=== PATIENT | male | born 1970 | race Caucasian/White ===

== ENCOUNTER 2016-07-04 10:03 | Inpatient (IN) | payer MEDICAID ==
[2016-07-04] MEDS ORDERED: SODIUM CHLORIDE 0.9% 1,000 ML IV ONE ×2 (10:36→12:36)
[2016-07-04] MEDS ORDERED: cloNIDine HCL 0.1 MG TAB PO STA (10:37)
--- NOTE | 2016-07-04 10:50 | ED ---
General Adult HPI - General Chief complaint: Psychiatric Symptoms Stated complaint: Mental Health Time Seen by Provider: 07/04/16 10:20 Source: patient Mode of arrival: ambulatory Limitations: no limitations - History of Present Illness Initial comments: 45-year-old male patient presents to emergency department today for complaints of anxiety and depression. Patient states that he's been having increased symptoms since the end of February when he lost his job. He states that he has been basically a hermit, afraid to leave the house, and has also had increased alcohol intake. Patient states that he has been on Effexor, clonazepam, and risperidone for the last 10 years, but abruptly stopped taking at the end of May. Patient did attempt to get into treatment for alcohol dependence at the beginning of June, but when he was released started drinking even more. Patient states that he drinks beer continuously throughout the day. Patient states he is having thoughts of harming himself, but denies any specific plan or attempts. Patient states he has also been having hallucinations, such as seeing bugs crawling on the floor with are not really there. Patient reports increased anxiety, to the point where it is becoming intolerable. Patient's friend is present and states that he has been extremely paranoid, is constantly looking at the windows, and is very fearful whenever she tries to leave his house. Patient denies any back pain, headache, dizziness, weakness, chest pain , shortness of breath, dysuria, urinary urgency or frequency. Patient states he is having some intermittent abdominal pain, nausea, and diarrhea. Patient was seen at [facility] on Wednesday for symptoms of anxiety and depression, and was noted to have elevated liver enzymes per patient. - Related Data Allergies Allergy/AdvReac Type Severity Reaction Status Date / Time No Known Allergies Allergy Verified 07/04/16 10:19 Review of Systems ROS Statement: Those systems with pertinent positive or pertinent negative responses have been documented in the HPI. ROS Other: All systems not noted in ROS Statement are negative. Past Medical History Past Medical History: No Reported History History of Any Multi-Drug Resistant Organisms: None Reported Past Surgical History: Hernia Repair Past Psychological History: Anxiety, Depression Smoking Status: Current every day smoker Past Alcohol Use History: Daily, Heavy Past Drug Use History: None Reported General Exam Limitations: no limitations General appearance: alert, in no apparent distress, anxious, other (Patient is thin-appearing) Head exam: Present: atraumatic, normocephalic, normal inspection Eye exam: Present: normal appearance, PERRL, EOMI. Absent: scleral icterus, conjunctival injection, periorbital swelling ENT exam: Present: normal exam, normal oropharynx, mucous membranes moist Neck exam: Present: normal inspection. Absent: tenderness, meningismus, lymphadenopathy Respiratory exam: Present: normal lung sounds bilaterally. Absent: respiratory distress, wheezes, rales, rhonchi, stridor Cardiovascular Exam: Present: regular rate, normal rhythm, normal heart sounds. Absent: systolic murmur, diastolic murmur, rubs, gallop, clicks GI/Abdominal exam: Present: soft, normal bowel sounds. Absent: distended, tenderness, guarding, rebound, rigid Extremities exam: Present: normal inspection, full ROM, normal capillary refill. Absent: tenderness, pedal edema, joint swelling, calf tenderness Back exam: Present: normal inspection Neurological exam: Present: alert, oriented X3, CN II-XII intact Psychiatric exam: Present: anxious Skin exam: Present: warm, dry, intact, normal color. Absent: rash Course Vital Signs 07/04/16 07/04/16 07/04/16 10:15 11:30 12:33 Temperature 97.5 F L 98.1 F Pulse Rate 121 H 94 101 H Respiratory 20 18 18 Rate Blood Pressure 201/109 192/91 178/90 O2 Sat by Pulse 98 100 98 Oximetry - Reevaluation(s) Reevaluation #1: 07/04/16 11:32 Repeated vital signs blood pressure is currently 192/91, oxygen 100%, heart rate 84, respirations 18. Patient denies any pain to states that he is hungry. We will call psych for mental health evaluation and let patient eat at this time. We'll continue to monitor blood pressure. EKG Findings - EKG Comments: EKG Findings:: EKG obtained at 1108 reveals normal sinus rhythm with nonspecific ST and T-wave abnormality, prolonged QT, ventricular rate 92, KY interval 120, QRS duration 98, QT 376, QTc 464. No ST elevation or depression noted. Medical Decision Making - Lab Data Result diagrams: 07/04/16 10:45 07/04/16 10:45 Lab Results 07/04/16 07/04/16 07/04/16 Range/Units 10:45 10:45 10:45 WBC 8.1 (3.8-10.6) k/uL RBC 4.39 (4.30-5.90) m/uL Hgb 14.4 (13.0-17.5) gm/dL Hct 42.7 (39.0-53.0) % MCV 97.4 (80.0-100.0) fL MCH 32.8 (25.0-35.0) pg MCHC 33.6 (31.0-37.0) g/dL RDW 12.7 (11.5-15.5) % Plt Count 170 (150-450) k/uL Neutrophils % 82 % Lymphocytes % 5 % Monocytes % 9 % Eosinophils % 0 % Basophils % 1 % Neutrophils # 6.6 (1.3-7.7) k/uL Lymphocytes # 0.4 L (1.0-4.8) k/uL Monocytes # 0.8 (0-1.0) k/uL Eosinophils # 0.0 (0-0.7) k/uL Basophils # 0.0 (0-0.2) k/uL Sodium 137 (137-145) mmol/L Potassium 3.2 L (3.5-5.1) mmol/L Chloride 99 (98-107) mmol/L Carbon Dioxide 25 (22-30) mmol/L Anion Gap 13 mmol/L BUN 9 (9-20) mg/dL Creatinine 0.67 (0.66-1.25) mg/dL Est GFR (MDRD) Af Amer >60 (>60 ml/min/1.73 sqM) Est GFR (MDRD) Non-Af >60 (>60 ml/min/1.73 sqM) Glucose 182 H (74-99) mg/dL Calcium 8.9 (8.4-10.2) mg/dL Magnesium 1.9 (1.6-2.3) mg/dL Total Bilirubin 0.9 (0.2-1.3) mg/dL AST 562 H (17-59) U/L ALT 252 H (21-72) U/L Alkaline Phosphatase 101 (38-126) U/L Total Protein 6.4 (6.3-8.2) g/dL Albumin 3.9 (3.5-5.0) g/dL Amylase 68 (30-110) U/L Lipase 290 (23-300) U/L Urine Color Yellow Urine Appearance Clear (Clear) Urine pH 6.5 (5.0-8.0) Ur Specific [place] 1.016 (1.001-1.035) Urine Protein 1+ H (Negative) Urine Glucose (UA) Negative (Negative) Urine Ketones 1+ H (Negative) Urine Blood Small H (Negative) Urine Nitrite Negative (Negative) Urine Bilirubin Negative (Negative) Urine Urobilinogen 2.0 (<2.0) mg/dL Ur Leukocyte Esterase Negative (Negative) Urine RBC 1 (0-5) /hpf Urine WBC 1 (0-5) /hpf Urine Mucus Few H (None) /hpf Urine Opiates Screen Not Detected (NotDetected) Ur Oxycodone Screen Not Detected (NotDetected) Urine Methadone Screen Not Detected (NotDetected) Ur Propoxyphene Screen Not Detected (NotDetected) Ur Barbiturates Screen Not Detected (NotDetected) U Tricyclic Antidepress Not Detected (NotDetected) Ur Phencyclidine Scrn Not Detected (NotDetected) Ur Amphetamines Screen Not Detected (NotDetected) U Methamphetamines Scrn Not Detected (NotDetected) U Benzodiazepines Scrn Detected H (NotDetected) Urine Cocaine Screen Not Detected (NotDetected) U Marijuana (THC) Screen Not Detected (NotDetected) Disposition Clinical Impression: Depression, Alcohol abuse, Acute anxiety Disposition: ADMITTED IP TO THIS [facility] Condition: Stable
[2016-07-04 10:58] LABS: Basophils % (A) 1 %; CH 33.3; CHCM 34.3; Eosinophils % (A) 0 %; HCT 42.7 % (39.0-53.0); HDW 2.18; HGB 14.4 gm/dL (13.0-17.5); Luc # (Auto) 0.19; Luc % (Auto) 2; Lymphocytes # (A) 0.4 k/uL (1.0-4.8); Lymphocytes % (A) 5 %; MCH 32.8 pg (25.0-35.0); MCHC 33.6 g/dL (31.0-37.0); MCV 97.4 fL (80.0-100.0); Mean Platelet Volume 8.5; Monocytes # (A) 0.8 k/uL (0-1.0); Monocytes % (A) 9 %; Neutrophils # (A) 6.6 k/uL (1.3-7.7); Neutrophils % (A) 82 %; RBC 4.39 m/uL (4.30-5.90); RDW 12.7 % (11.5-15.5); WBC 8.1 k/uL (3.8-10.6); WBC (Perox) 8.15
[2016-07-04 11:15] LABS: Appearance,Urine Clear (Clear); Bilirubin,Urine Negative (Negative); Glucose,Urine (UA) Negative (Negative); Ketones,Urine 1+ (Negative); Leukocyte Esterase,Urine Negative (Negative); Mucus,Urine Few /hpf; Nitrite,Urine Negative (Negative); PH, Urine 6.5 (5.0-8.0); Particle Count 4620; Protein,Urine 1+ (Negative); RBC,Urine 1 /hpf (0-5); Specific Gravity,Urine 1.016 (1.001-1.035); UA Billing (MACRO vs. MICRO) MICRO; WBC,Urine 1 /hpf (0-5)
[2016-07-04 11:17] LABS: ALT 252 U/L (21-72); AST 562 U/L (17-59); Alkaline Phosphatase 101 U/L (38-126); Amylase 68 U/L (30-110); Anion Gap 13 mmol/L; Blood Urea Nitrogen 9 mg/dL (9-20); Calcium 8.9 mg/dL (8.4-10.2); Carbon Dioxide 25 mmol/L (22-30); Chloride 99 mmol/L (98-107); Glucose 182 mg/dL (74-99); Magnesium 1.9 mg/dL (1.6-2.3); Non-African American GFR(MDRD) >60 (>60 ml/min/1.73 sqM); Potassium 3.2 mmol/L (3.5-5.1); Sodium 137 mmol/L (137-145); Total Bilirubin 0.9 mg/dL (0.2-1.3); Total Protein 6.4 g/dL (6.3-8.2)
[2016-07-04] MEDS ORDERED: POTASSIUM CHLORIDE ER 20 MEQ TAB.ER PO STA (11:29)
[2016-07-04] MEDS ORDERED: LORazepam 2 MG/ML SYRINGE IV STA (12:36)
[2016-07-04] MEDS ORDERED: MAGNESIUM HYDROXIDE 2,400 MG/10 ML CUP PO PRN (13:12)
[2016-07-04] MEDS ORDERED: MAG HYDROX/AL HYDROX/SIMETH 30 ML CUP PO PRN (13:12)
[2016-07-04] MEDS ORDERED: ZIPRASIDONE 20 MG VIAL IM PRN (13:12)
[2016-07-04] MEDS ORDERED: ACETAMINOPHEN TAB 325 MG TAB PO PRN (13:12)
[2016-07-04 14:48] VITALS: BMI 19.3
[2016-07-04] MEDS: NICOTINE 21MG/24HR PATCH TRANSDERM SCH (15:52)
[2016-07-04] MEDS: LORazepam 1 MG TAB PO PRN (17:32)
[2016-07-05] MEDS: LORazepam 1 MG TAB PO PRN ×4 (06:34→20:51)
[2016-07-05] MEDS ORDERED: NICOTINE 14MG/24HR PATCH TRANSDERM SCH (09:00)
[2016-07-05] MEDS: VENLAFAXINE HCL ER 150 MG CAP PO SCH (09:44)
[2016-07-05] MEDS: NICOTINE 21MG/24HR PATCH TRANSDERM SCH (09:44)
[2016-07-05 10:03] LABS: Basophils % (A) 0 %; CH 32.9; CHCM 32.7; Eosinophils # (A) 0.1 k/uL (0-0.7); Eosinophils % (A) 1 %; HCT 43.3 % (39.0-53.0); HDW 2.17; HGB 14.2 gm/dL (13.0-17.5); Luc # (Auto) 0.11; Luc % (Auto) 2; Lymphocytes # (A) 0.8 k/uL (1.0-4.8); Lymphocytes % (A) 12 %; MCH 33.1 pg (25.0-35.0); MCHC 32.8 g/dL (31.0-37.0); MCV 100.8 fL (80.0-100.0); Mean Platelet Volume 8.5; Monocytes # (A) 0.5 k/uL (0-1.0); Monocytes % (A) 8 %; Neutrophils # (A) 5.1 k/uL (1.3-7.7); Neutrophils % (A) 78 %; RBC 4.29 m/uL (4.30-5.90); RDW 12.5 % (11.5-15.5); WBC 6.5 k/uL (3.8-10.6); WBC (Perox) 6.86
[2016-07-05 11:03] LABS: ALT 217 U/L (21-72); AST 337 U/L (17-59); Alkaline Phosphatase 91 U/L (38-126); Anion Gap 11 mmol/L; Blood Urea Nitrogen 8 mg/dL (9-20); Calcium 9.2 mg/dL (8.4-10.2); Carbon Dioxide 29 mmol/L (22-30); Chloride 103 mmol/L (98-107); Glucose 139 mg/dL (74-99); Non-African American GFR(MDRD) >60 (>60 ml/min/1.73 sqM); Potassium 3.3 mmol/L (3.5-5.1); Sodium 143 mmol/L (137-145); Total Bilirubin 0.8 mg/dL (0.2-1.3); Total Protein 6.7 g/dL (6.3-8.2)
[2016-07-05 11:47] LABS: Hepatitis C Virus IgG Index 0.01
[2016-07-05 11:56] LABS: Hepatitis C Virus IgG Ab Negative (Negative)
--- NOTE | 2016-07-05 12:33 | HP ---
DATE OF ADMISSION: 07/04/2016 IDENTIFYING DATA/HISTORY OF PRESENT ILLNESS: Patient is a 45-year-old white male living on his own who presented to the emergency department with complaints of anxiety and depression. Patient stated that he has history of depression and anxiety since 2003 and it was under control with psychotropic medication; However, for the last 2 to 3 months, patient has been noncompliant with the psychotropic medication and he has been drinking on a daily basis up to 12 cans a beer a day. Patient stated that for the last 2 to 3 months he has been isolating himself, afraid to leave the house, not taking care of his hygiene, sleeping most of the daytime and not able to sleep at night. Patient described increased anxiety, characterized by restless feeling, irritability and feeling on edge. Patient reported that he was in stable job working until January 2016. At that time, he did get into conflict with others two coworkers and he decided to quit his job. He did report that he has been struggling with a lot of financial issues as he does not have any income. Patient is estranged from every family member even from his children. Patient stated he has only one support system, it is his friend Nichole. He denied having any suicidal ideation, but he endorses feeling hopeless, helpless, agitated. No interest. Change in sleep pattern and change in his appetite, tiredness and fatigue and no interest to get out of the house. He denied any auditory or visual hallucination. He denied any idea of reference or thought process or thought broadcasting. PAST PSYCHIATRIC HISTORY: There is no previous suicidal attempt. There is previous outpatient treatment at age 29, he was in treatment for alcohol abuse and depression and anxiety for 4 years. At that time he was going through his first divorce. In 2003, patient was admitted to the day hospital program in [facility] in [facility] and he was started at that time on Effexor 150 mg daily, Klonopin 0.5 twice a day, Risperdal 1 mg at bedtime. After the day program, patient was in outpatient Behavior Medicine at [facility] in [place] until 2005 for alcohol use and depression. Patient stated that since 2005, he has been getting the same psychotropic medication prescribed by his primary care physician. However, he has been noncompliant with the medication since first week of May. Patient stated that he lost his medical insurance and he is trying to apply for Medicaid. Family history of psychiatric illness: Patient stated that his mother had depression but never had been treated. Multiple family members from his mother's side have depression. Family history of chemical dependence: His father was alcoholic. Substance abuse history: He started drinking in 2009 according to him, when I "this [place] lady" and his drinking has been out of control since he quit his job January 2016 and as I mentioned before, he has been drinking on a daily basis up to 12 cans of beers a day. He denied any withdrawal seizure or DT. Patient stated that he was in 5 days alcohol detox program first week of June at [place]. However, after the 5 days Detox, he did relapse the day of the discharge There is no known allergy. There is no acute medical problems. Vital signs at the time of his arrival to the emergency room: Temperature 98.1, pulse 101, respiration 18, blood pressure 178/90. Urine drug screen is positive for benzodiazepine; however, patient did receive Ativan when he came to the emergency room. EKG done on July 04 I do not have that report that result yet. LABORATORY DATA: White blood cells within normal, red blood cells within normal limits. Sodium 137, potassium slightly low at 3.2, blood glucose was 182, hepatic enzyme high, AST 562, ALT 252, his urinalysis there is 1+ cocaine, small amount of blood and some urine mucous but it is negative for leukocyte esterase. SOCIAL HISTORY: Patient is the youngest of 2. He has one older brother. He was raised by both parents. He graduated from high school. He was in special education class . He was raised Pentecostalism. After high school he started working in the [employer] and he has been working in the same company until past January 2016. He was twice. The first marriage for 13 years and he had 2 children. Patient does not have contact with them. His second marriage it was in 2009. He stated that he met a [place] lady; however, they were together for only a couple of years and since then they have been and she is currently in [place] and patient does not know where she is. Patient is currently unemployed. Does not have any income and he has been living on his own. Legal problems: Currently he denied any current legal program. MENTAL STATUS EXAMINATION: Patient presented as male who looks older than stated age. He is dressed in his own clothing, poor hygiene. He has good eye contact. His speech is nonpressured and spontaneous. Thought process is linear. There is no evidence of tangential thinking. He was alert, oriented to person, place and time. His affect is conflicted stated mood "I am anxious and depressed." He denied any suicidal or homicide ideation, but he expressed depressive symptoms including feeling helpless, worthless and overwhelmed. He denied any hallucination, but he did express some paranoia and suspicious feeling toward people in general. His thinking appears complete. He does not appear to be responding to any internal stimuli. His insight regarding his alcohol use is questionable. Intellectual function: Average. Weakness: Alcohol use disorder. No job, limited social support system. STRENGTHS: Patient is able to ask for help. DISCHARGE DIAGNOSES: 1. Major depression disorder, recurrent, moderate rule out with psychotic feature. 2. Alcohol use disorder, severe. 3. Anxiety disorder. RECOMMENDATION: We will continue inpatient psychiatric hospitalization for treatment of depressive symptoms and his paranoia. Patient will be on [facility] protocol for alcohol detox. I will restart him back on his psychotropic medication Effexor and low dose of Risperdal, however, I will not give him any benzodiazepine based on his extensive history of alcohol use. Patient will participate in therapeutic group and activities. slab worker to meet with his friend Nichole for collateral information. Length of stay four to 5 days with most probably he will be discharged to substance abuse rehab.
[2016-07-05] MEDS ORDERED: LOPERAMIDE 2 MG CAP PO PRN (13:11)
[2016-07-05] MEDS: ONDANSETRON 4 MG TAB PO PRN (13:46)
[2016-07-05] MEDS: FOLIC ACID 1 MG TAB PO SCH (14:21)
[2016-07-05] MEDS: cloNIDine HCL 0.1 MG TAB PO PRN ×2 (14:21→20:49)
[2016-07-05] MEDS: THIAMINE 100 MG TAB PO SCH (14:21)
[2016-07-05] MEDS: MULTIVITAMINS, THERA 1 EACH TAB PO SCH (14:22)
--- NOTE | 2016-07-05 14:51 | P.HPMEDMHU ---
History of Present Illness H&P Date: 07/05/16 Chief Complaint: Major depressive disorder, alcohol abuse. 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 Apparently since he had lost his job he has been struggling financially and he is not able to take his depression medications. Review of Systems Constitutional: Denies chills, Denies chronic headaches, Denies lethargy, Denies malaise, Denies weight gain, Denies weight loss Eyes: denies blurred vision, denies bulging eye, denies decreased vision Ears: deny: decreased hearing Ears, nose, mouth and throat: Denies dysphagia, Denies neck lump, Denies swelling in throat, Denies sore throat, Denies vertigo Cardiovascular: Reports decreased exercise tolerance, Reports dyspnea on exertion, Reports high blood pressure, Denies chest pain, Denies phlebitis, Denies rapid heart beat, Denies shortness of breath, Denies syncope Respiratory: Denies congestion, Denies cough, Denies cough with sputum, Denies home oxygen, Denies sleep apnea, Denies snoring, Denies wheezing Gastrointestinal: Denies abdominal pain, Denies bloating, Denies BRBPR, Denies heartburn, Denies hematemesis, Denies melena, Denies nausea, Denies vomiting Genitourinary: Denies dysuria, Denies nocturia, Denies polyuria Musculoskeletal: Denies myalgias Musculoskeletal: absent: ankle pain, ankle stiffness, ankle swelling, elbow pain , elbow stiffness, elbow swelling, foot pain, foot stiffness, foot swelling, hand pain, hand stiffness, hand swelling, hip pain, hip stiffness, hip swelling , knee pain, knee stiffness, knee swelling, shoulder pain, shoulder stiffness, shoulder swelling, wrist pain, wrist stiffness, wrist swelling Integumentary: Denies pruritus, Denies rash Neurological: Denies numbness, Denies weakness Psychiatric: Denies anxiety, Denies depression Endocrine: Denies fatigue, Denies weight change Past Medical History Past Medical History: No Reported History, GERD/Reflux, Hypertension History of Any Multi-Drug Resistant Organisms: None Reported Past Surgical History: Hernia Repair Past Psychological History: Anxiety, Depression Smoking Status: Current every day smoker (Patient smokes about a pack every day since the age of 17, he tried marijuana in the past that anymore.) Past Alcohol Use History: Daily, Heavy Past Drug Use History: None Reported - Past Family History Mother Family Medical History: Hypertension (Mother is 73-year-old has history of hypertension.) Father Family Medical History: COPD (Father is 73-year-old has COPD.) Brother(s) Family Medical History: Blood Disorder (Patient has one brother who was diagnosed with CML currently in remission) Sister(s) Family Medical History: No Reported History (Patient has 4 sisters no major medical problems) Daughter(s) Family Medical History: No Reported History (Patient has one daughter no major medical problems) Son(s) Family Medical History: No Reported History (Patient has one son no major medical problems) Medications and Allergies Home Medications Medication Instructions Recorded Confirmed Type Amoxicillin/Potassium Clav 1 tab PO Q12HR 07/04/16 07/04/16 History [Augmentin 875-125 Tablet] Folic Acid 1 mg PO DAILY 07/04/16 07/04/16 History LORazepam [Ativan] 1 mg PO TID PRN 07/04/16 07/04/16 History Multivitamins, Thera [Multivitamin 1 tab PO DAILY 07/04/16 07/04/16 History (formulary)] Allergies Allergy/AdvReac Type Severity Reaction Status Date / Time No Known Allergies Allergy Verified 07/04/16 14:56 Physical Exam Vitals: Vital Signs Temp Pulse Resp BP Pulse Ox 07/05/16 13:00 100 20 171/97 07/05/16 11:42 98.6 F 123 H 20 180/102 97 07/05/16 06:41 98.1 F 101 H 16 162/83 07/05/16 03:36 98.5 F 88 18 129/93 07/04/16 20:37 98.3 F 101 H 15 142/86 90 L 07/04/16 14:58 98.4 F 103 H 15 134/77 99 07/04/16 14:42 98.4 F 103 H 15 134/77 99 Intake and Output 07/04/16 07/05/16 07/05/16 22:59 06:59 14:59 Other: Weight 61.2 kg Patient Weight 07/06/16 06:59 Weight 61.2 kg - Constitutional General appearance: no acute distress, thin - EENT Eyes: anicteric sclerae, EOMI, PERRLA, no ptosis, no scleral icterus, normal appearance ENT: normal oropharynx, no thrush Ears: bilateral: normal - Neck Neck: no lymphadenopathy, normal ROM, no rigidity, no stridor, no thyromegaly Carotids: bilateral: upstroke normal Thyroid: bilateral: normal size - Respiratory Respiratory: bilateral: diminished, wheezing, prolonged expiration, negative: dullness, rales, rhonchi - Cardiovascular Rhythm: regular Heart sounds: normal: S1, S2 Abnormal Heart Sounds: systolic murmur, no rub, no S3 Gallop, no S4 Gallop, no click - Gastrointestinal General gastrointestinal: normal bowel sounds, soft, no splenomegaly, no tenderness, no umbilical hernia, no ventral hernia - Integumentary Integumentary: normal, normal turgor, ulcer (There is a scab on the right index ended middle finger due to a burn.) Cranial Nerve Examination - Cranial Nerves Cranial Nerve I- Olfactory: Intact Cranial Nerve II- Optic: Intact Cranial Nerve III- Oculomotor: Intact Cranial Nerve IV- Trochlear: Intact Cranial Nerve V- Trigeminal: Intact Cranial Nerve - Abducens: Intact Cranial Nerve VII- Facial: Intact Cranial Nerve VIII- Auditory: Intact Cranial Nerve IX- Glossopharyngeal: Intact Cranial Nerve X- Vagus: Intact Cranial Nerve XI- Accessory: Intact Cranial Nerve XII- Hypoglossal: Intact Results CBC & Chem 7: 07/05/16 09:48 07/05/16 09:48 Labs: Abnormal Lab Results - Last 24 Hours (Table) 07/05/16 07/05/16 Range/Units 09:48 09:48 RBC 4.29 L (4.30-5.90) m/uL MCV 100.8 H (80.0-100.0) fL Lymphocytes # 0.8 L (1.0-4.8) k/uL Potassium 3.3 L (3.5-5.1) mmol/L BUN 8 L (9-20) mg/dL Glucose 139 H (74-99) mg/dL AST 337 H (17-59) U/L ALT 217 H (21-72) U/L Assessment and Plan Plan: Assessment and plan: 1. Major depressive disorder. Patient was started already on Effexor XR and Risperdal, continue current management as per mental health unit service. 2. Alcohol abuse. Patient will be seen and monitored for DTs . We will start the patient on clonidine 0.1 mg orally twice every day. Avoid benzodiazepine. 3. Right index and middle finger burn. No need for any treatment. Continue local skin care. 4. Hypertension. Start clonidine 0.1 mg orally twice every day. 5. GERD. Stable. 6. ALLERGIC rhinitis. Stable. 7. Tobacco use and dependence with COPD. Smoking cessation and counseling. 8. Thank you for the consult, we'll follow with you.
[2016-07-05] MEDS ORDERED: POTASSIUM CHLORIDE ER 20 MEQ TAB.ER PO STA (16:56)
[2016-07-05] MEDS ORDERED: cloNIDine HCL 0.1 MG TAB PO STA (18:04)
[2016-07-05] MEDS: LORazepam 1 MG TAB PO SCH (18:18)
[2016-07-05] MEDS: risperiDONE ODT 1 MG TAB PO SCH (20:47)
[2016-07-06] MEDS: LORazepam 1 MG TAB PO SCH ×2 (00:42→06:07)
[2016-07-06] MEDS: cloNIDine HCL 0.1 MG TAB PO PRN (00:50)
[2016-07-06] MEDS ORDERED: cloNIDine HCL 0.1 MG TAB PO SCH (09:00)
--- NOTE | 2016-07-06 09:31 | P.PN ---
Progress Note - Text Interval history: The patient is found in the hallway he follows me to an interview room. He was admitted over the weekend for acute symptoms of anxiety and depression. This has been occurring in the context of an alcohol use disorder. The patient states he has been unemployed since January as he quit his job. He has been living on his 401(k). He has been off of his psychotropic medication for at least 1 month and his mood has subsequently declined. He has been drinking more over the last 1 month. Liver enzymes were significantly elevated it appears they're starting to trend downward. Blood pressure is elevated. He does have Ativan available as needed for alcohol withdrawal symptoms. He was restarted on his Effexor XR and Risperdal he states he is having some initial nausea because he Effexor was started at the full 150 mg dose. He was able to sleep last night the night before however he was not. He states he's been on Effexor XR and Risperdal for 10 years. He does endorse some suspiciousness when he is at home that people would try to look in or come into his apartment and he has thoughts that the police would come for him for no reason. Mental status exam: The patient's a thin male he seated calmly he is dressed in his own clothing. Eye contact is appropriate. He reports a depressed and anxious mood affect is mildly anxious. He is cooperative. He reports some hopelessness thinking no homicidal ideation intent or plan. He feels safe here in the hospital. He is endorsing no auditory or visual hallucinations. He endorses suspicious thoughts that people would try to come into his apartment including the police. Insight and judgment limited. He demonstrates no verbal or physical aggressiveness. No tremor is noted no abnormal involuntary movements observed. Affect is bland throughout the session. Plan: The patient will be continued on his current psychotropic medications. We will monitor him for safety and for alcohol withdrawal symptoms. He is encouraged participate in groups. We discussed having him participate in inpatient chemical dependency treatment but he states due to a prior bad experience at [facility] he would not go there again.
[2016-07-06] MEDS: NICOTINE 21MG/24HR PATCH TRANSDERM SCH (09:36)
[2016-07-06] MEDS: VENLAFAXINE HCL ER 150 MG CAP PO SCH (09:38)
[2016-07-06 10:40] LABS: Anion Gap 12 mmol/L; Blood Urea Nitrogen 8 mg/dL (9-20); Calcium 9.2 mg/dL (8.4-10.2); Carbon Dioxide 26 mmol/L (22-30); Chloride 105 mmol/L (98-107); Glucose 124 mg/dL (74-99); Magnesium 2.1 mg/dL (1.6-2.3); Non-African American GFR(MDRD) >60 (>60 ml/min/1.73 sqM); Potassium 3.6 mmol/L (3.5-5.1); Sodium 143 mmol/L (137-145)
[2016-07-06] MEDS ORDERED: FOLIC ACID 1 MG TAB PO SCH (12:00)
[2016-07-06] MEDS ORDERED: THIAMINE 100 MG TAB PO SCH (12:00)
[2016-07-06] MEDS ORDERED: MULTIVITAMINS, THERA 1 EACH TAB PO SCH (12:00)
[2016-07-06] MEDS: MULTIVITAMINS, THERA 1 EACH TAB PO SCH (12:14)
[2016-07-06] MEDS: FOLIC ACID 1 MG TAB PO SCH (12:14)
[2016-07-06] MEDS: THIAMINE 100 MG TAB PO SCH (12:14)
[2016-07-06] MEDS: LORazepam 1 MG TAB PO PRN ×3 (16:22→23:53)
[2016-07-06] MEDS: cloNIDine HCL 0.1 MG TAB PO SCH ×2 (16:56→21:04)
[2016-07-06] MEDS: risperiDONE ODT 1 MG TAB PO SCH (21:03)
--- NOTE | 2016-07-07 08:51 | P.PN ---
Progress Note - Text Interval history: The patient is found in the hallway he follows me to an interview room. He reports his mood is improving. He has a support meeting scheduled with his friend Nichole tomorrow afternoon. He was able to sleep last night. Nausea has improved appetite slowly improving. He has attended groups but feels anxious being put on the spot and happy to talk. We discussed the precipitating events leading to this admission. We discussed his medications his questions were answered. Mental status exam: The patient is a thin male appearing his stated age. He is dressed in his own clothing. Eye contact is appropriate hygiene grooming adequate. He feels his mood is improving. He is reporting no acute suicidal or homicidal ideation intent or plan. There is no evidence of psychosis he reports feeling safe here on the mental health unit. He is endorsing no auditory or visual hallucinations. He does not appear hypomanic or manic. Insight and judgment improving. There is no verbal or physical aggressiveness. There is no evidence of tremor or any abnormal involuntary movements. Plan: The patient appears to be stabilizing. We will consider discharging him tomorrow. Vital signs remained elevated we will monitor those further. We discussed alcohol cessation. He does not wish to participate in inpatient chemical dependency treatment. He is encouraged to continue complying with group participation.
[2016-07-07] MEDS: NICOTINE 21MG/24HR PATCH TRANSDERM SCH (08:52)
[2016-07-07] MEDS: VENLAFAXINE HCL ER 150 MG CAP PO SCH (08:52)
[2016-07-07] MEDS: cloNIDine HCL 0.1 MG TAB PO SCH ×3 (08:52→20:57)
[2016-07-07] MEDS: LORazepam 1 MG TAB PO PRN ×3 (10:55→19:59)
[2016-07-07] MEDS: ONDANSETRON 4 MG TAB PO PRN (12:37)
[2016-07-07] MEDS: FOLIC ACID 1 MG TAB PO SCH (13:04)
[2016-07-07] MEDS: amLODIPine 5 MG TAB PO SCH (13:04)
[2016-07-07] MEDS: MULTIVITAMINS, THERA 1 EACH TAB PO SCH (13:04)
[2016-07-07] MEDS: THIAMINE 100 MG TAB PO SCH (13:04)
[2016-07-07] MEDS: risperiDONE ODT 1 MG TAB PO SCH (20:57)
[2016-07-08] MEDS: LORazepam 1 MG TAB PO PRN (01:09)
[2016-07-08 04:54] VITALS: TEMP 97.9
[2016-07-08] MEDS: amLODIPine 5 MG TAB PO SCH (07:59)
[2016-07-08] MEDS: cloNIDine HCL 0.1 MG TAB PO SCH (07:59)
[2016-07-08] MEDS: NICOTINE 21MG/24HR PATCH TRANSDERM SCH (07:59)
[2016-07-08] MEDS: VENLAFAXINE HCL ER 150 MG CAP PO SCH (07:59)
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
[2016-07-08 09:55] VITALS: BP 141/80; PULSE 120; RESP 20
[2016-07-08] MEDS: THIAMINE 100 MG TAB PO SCH (11:43)
[2016-07-08] MEDS: FOLIC ACID 1 MG TAB PO SCH (11:43)
[2016-07-08] MEDS: MULTIVITAMINS, THERA 1 EACH TAB PO SCH (11:43)
== END 2016-07-08 12:17 | disposition home or self-care (01) | DRG 885 ==
LOC: EC 10:03 → 3MHU 13:09
PROVIDERS: ADMIT Psychiatry & Neurology Psychiatry; ATTEND Psychiatry & Neurology Psychiatry
DX: F33.2 Major depressive disorder, recurrent severe without psychotic features (principal); F10.239 Alcohol dependence with withdrawal, unspecified; Z91.14 Patient's other noncompliance with medication regimen; F17.200 Nicotine dependence, unspecified, uncomplicated; I10 Essential (primary) hypertension; F41.9 Anxiety disorder, unspecified; K21.9 Gastro-esophageal reflux disease without esophagitis; J30.9 Allergic rhinitis, unspecified; J44.9 Chronic obstructive pulmonary disease, unspecified; Z56.0 Unemployment, unspecified; Z63.8 Other specified problems related to primary support group; Z81.8 Family history of other mental and behavioral disorders; Z79.899 Other long term (current) drug therapy
CPT/HCPCS: 36415; 80048; 80053; 80306; 81001; 82075; 82150; 83690; 83735; 84443; 85025; 86803; 93005; 96360; 96361; 96375; 99285

== ENCOUNTER 2016-10-03 09:22 | Inpatient (IN) | payer MEDICAID, OTHER ==
[2016-10-03] MEDS ORDERED: LORazepam 2 MG/ML SYRINGE IV STA ×3 (09:57→15:58)
[2016-10-03] MEDS ORDERED: SODIUM CHLORIDE 0.9% 2,000 ML IV ONE (09:57)
--- NOTE | 2016-10-03 10:19 | ED ---
Psych HPI - General Chief Complaint: Psychiatric Symptoms Stated Complaint: DEPRESSION, SUICIDAL Time Seen by Provider: 10/03/16 09:32 Source: patient, family, RN notes reviewed Mode of arrival: wheelchair Limitations: no limitations - History of Present Illness Initial Comments: This a 46-year-old male presents emergency department with family for psychiatric evaluation. Patient states a severely depressed and suicidal. Patient has had long-standing depression and multiple bouts of psychiatric help and admissions. Patient states that he's been drinking daily approximately one case of beer daily. Patient denies any withdrawal symptoms at this time though he's had some intermittent nausea vomiting. Denies any shortness of breath states that he just cannot take it anymore. Family states that they unsure present she taking his medications or not. She denies any homicidal thoughts. Denies illicit drug use. - Related Data Home Medications Medication Instructions Recorded Confirmed Multivitamins, Thera [Multivitamin 1 tab PO DAILY 07/04/16 10/03/16 (formulary)] Atenolol [Tenormin] 12.5 mg PO BID 10/03/16 10/03/16 Atorvastatin [Lipitor] 20 mg PO HS 10/03/16 10/03/16 Gabapentin [Neurontin] 100 mg PO TID 10/03/16 10/03/16 OLANZapine [ZyPREXA] 5 mg PO HS 10/03/16 10/03/16 Omeprazole [PriLOSEC] 20 mg PO AC-BRKFST 10/03/16 10/03/16 Venlafaxine HCl [Effexor XR] 225 mg PO DAILY 10/03/16 10/03/16 Previous Rx's Medication Instructions Recorded cloNIDine HCL [Catapres] 0.1 mg PO TID #45 tab 07/08/16 Allergies Allergy/AdvReac Type Severity Reaction Status Date / Time No Known Allergies Allergy Verified 10/03/16 11:41 Review of Systems ROS Statement: Those systems with pertinent positive or pertinent negative responses have been documented in the HPI. ROS Other: All systems not noted in ROS Statement are negative. Past Medical History Past Medical History: GERD/Reflux, Hypertension History of Any Multi-Drug Resistant Organisms: None Reported Past Surgical History: Hernia Repair Past Psychological History: Anxiety, Depression Smoking Status: Current every day smoker Past Alcohol Use History: Daily, Heavy Past Drug Use History: None Reported - Past Family History Mother Family Medical History: Hypertension (Mother is 73-year-old has history of hypertension.) Father Family Medical History: COPD (Father is 73-year-old has COPD.) Brother(s) Family Medical History: Blood Disorder (Patient has one brother who was diagnosed with CML currently in remission) Sister(s) Family Medical History: No Reported History (Patient has 4 sisters no major medical problems) Daughter(s) Family Medical History: No Reported History (Patient has one daughter no major medical problems) Son(s) Family Medical History: No Reported History (Patient has one son no major medical problems) General Exam Limitations: no limitations General appearance: alert, in no apparent distress, other (Smells of alcohol) Head exam: Present: atraumatic, normocephalic, normal inspection Eye exam: Present: normal appearance, PERRL, EOMI. Absent: scleral icterus, conjunctival injection, periorbital swelling ENT exam: Present: normal exam, normal oropharynx, mucous membranes moist Neck exam: Present: normal inspection, full ROM. Absent: tenderness, meningismus, lymphadenopathy Respiratory exam: Present: normal lung sounds bilaterally. Absent: respiratory distress, wheezes, rales, rhonchi, stridor Cardiovascular Exam: Present: normal rhythm, tachycardia, normal heart sounds. Absent: systolic murmur, diastolic murmur, rubs, gallop, clicks GI/Abdominal exam: Present: soft, normal bowel sounds. Absent: distended, tenderness, guarding, rebound, rigid Neurological exam: Present: alert, oriented X3, CN II-XII intact, reflexes normal. Absent: motor sensory deficit Skin exam: Present: warm, dry, intact, normal color. Absent: rash Course Vital Signs 10/03/16 10/03/16 10/03/16 09:24 12:45 15:06 Temperature 97.3 F L 96.9 F L Pulse Rate 122 H 110 H 110 H Respiratory 18 20 14 Rate Blood Pressure 173/108 165/67 170/91 O2 Sat by Pulse 99 99 95 Oximetry Medical Decision Making - Lab Data Result diagrams: 10/03/16 10:35 10/03/16 10:35 Lab Results 10/03/16 10/03/16 10/03/16 Range/Units 10:35 10:35 11:11 WBC 6.0 (3.8-10.6) k/uL RBC 4.11 L (4.30-5.90) m/uL Hgb 14.2 (13.0-17.5) gm/dL Hct 40.8 (39.0-53.0) % MCV 99.3 (80.0-100.0) fL MCH 34.6 (25.0-35.0) pg MCHC 34.9 (31.0-37.0) g/dL RDW 13.7 (11.5-15.5) % Plt Count 156 (150-450) k/uL Neutrophils % 77 % Lymphocytes % 14 % Monocytes % 5 % Eosinophils % 2 % Basophils % 1 % Neutrophils # 4.6 (1.3-7.7) k/uL Lymphocytes # 0.8 L (1.0-4.8) k/uL Monocytes # 0.3 (0-1.0) k/uL Eosinophils # 0.1 (0-0.7) k/uL Basophils # 0.0 (0-0.2) k/uL Sodium 139 (137-145) mmol/L Potassium 3.9 (3.5-5.1) mmol/L Chloride 106 (98-107) mmol/L Carbon Dioxide 20 L (22-30) mmol/L Anion Gap 13 mmol/L BUN <2 L (9-20) mg/dL Creatinine 0.58 L (0.66-1.25) mg/dL Est GFR (MDRD) Af Amer >60 (>60 ml/min/1.73 sqM) Est GFR (MDRD) Non-Af >60 (>60 ml/min/1.73 sqM) Glucose 88 (74-99) mg/dL Calcium 7.9 L (8.4-10.2) mg/dL Magnesium 1.8 (1.6-2.3) mg/dL Total Bilirubin 0.8 (0.2-1.3) mg/dL AST 392 H (17-59) U/L ALT 197 H (21-72) U/L Alkaline Phosphatase 90 (38-126) U/L Total Protein 6.1 L (6.3-8.2) g/dL Albumin 3.6 (3.5-5.0) g/dL Lipase 156 (23-300) U/L Urine Color Colorless Urine Appearance Clear (Clear) Urine pH 6.0 (5.0-8.0) Ur Specific [place] 1.000 L (1.001-1.035) Urine Protein Negative (Negative) Urine Glucose (UA) Negative (Negative) Urine Ketones Negative (Negative) Urine Blood Negative (Negative) Urine Nitrite Negative (Negative) Urine Bilirubin Negative (Negative) Urine Urobilinogen <2.0 (<2.0) mg/dL Ur Leukocyte Esterase Negative (Negative) Urine Opiates Screen (NotDetected) Ur Oxycodone Screen (NotDetected) Urine Methadone Screen (NotDetected) Ur Propoxyphene Screen (NotDetected) Ur Barbiturates Screen (NotDetected) U Tricyclic Antidepress (NotDetected) Ur Phencyclidine Scrn (NotDetected) Ur Amphetamines Screen (NotDetected) U Methamphetamines Scrn (NotDetected) U Benzodiazepines Scrn (NotDetected) Urine Cocaine Screen (NotDetected) U Marijuana (THC) Screen (NotDetected) 10/03/16 Range/Units 11:11 WBC (3.8-10.6) k/uL RBC (4.30-5.90) m/uL Hgb (13.0-17.5) gm/dL Hct (39.0-53.0) % MCV (80.0-100.0) fL MCH (25.0-35.0) pg MCHC (31.0-37.0) g/dL RDW (11.5-15.5) % Plt Count (150-450) k/uL Neutrophils % % Lymphocytes % % Monocytes % % Eosinophils % % Basophils % % Neutrophils # (1.3-7.7) k/uL Lymphocytes # (1.0-4.8) k/uL Monocytes # (0-1.0) k/uL Eosinophils # (0-0.7) k/uL Basophils # (0-0.2) k/uL Sodium (137-145) mmol/L Potassium (3.5-5.1) mmol/L Chloride (98-107) mmol/L Carbon Dioxide (22-30) mmol/L Anion Gap mmol/L BUN (9-20) mg/dL Creatinine (0.66-1.25) mg/dL Est GFR (MDRD) Af Amer (>60 ml/min/1.73 sqM) Est GFR (MDRD) Non-Af (>60 ml/min/1.73 sqM) Glucose (74-99) mg/dL Calcium (8.4-10.2) mg/dL Magnesium (1.6-2.3) mg/dL Total Bilirubin (0.2-1.3) mg/dL AST (17-59) U/L ALT (21-72) U/L Alkaline Phosphatase (38-126) U/L Total Protein (6.3-8.2) g/dL Albumin (3.5-5.0) g/dL Lipase (23-300) U/L Urine Color Urine Appearance (Clear) Urine pH (5.0-8.0) Ur Specific [place] (1.001-1.035) Urine Protein (Negative) Urine Glucose (UA) (Negative) Urine Ketones (Negative) Urine Blood (Negative) Urine Nitrite (Negative) Urine Bilirubin (Negative) Urine Urobilinogen (<2.0) mg/dL Ur Leukocyte Esterase (Negative) Urine Opiates Screen Not Detected (NotDetected) Ur Oxycodone Screen Not Detected (NotDetected) Urine Methadone Screen Not Detected (NotDetected) Ur Propoxyphene Screen Not Detected (NotDetected) Ur Barbiturates Screen Not Detected (NotDetected) U Tricyclic Antidepress Not Detected (NotDetected) Ur Phencyclidine Scrn Not Detected (NotDetected) Ur Amphetamines Screen Not Detected (NotDetected) U Methamphetamines Scrn Not Detected (NotDetected) U Benzodiazepines Scrn Detected H (NotDetected) Urine Cocaine Screen Not Detected (NotDetected) U Marijuana (THC) Screen Not Detected (NotDetected) Disposition Clinical Impression: Suicidal ideation, Alcohol abuse, Major depressive disorder, recurrent Disposition: ADMITTED IP TO THIS [facility] Referrals: None,Stated [REFERRING] - 1-2 days
[2016-10-03 10:45] LABS: Basophils % (A) 1 %; CH 33.4; CHCM 33.7; Eosinophils # (A) 0.1 k/uL (0-0.7); Eosinophils % (A) 2 %; HCT 40.8 % (39.0-53.0); HDW 1.91; HGB 14.2 gm/dL (13.0-17.5); Luc # (Auto) 0.13; Luc % (Auto) 2; Lymphocytes # (A) 0.8 k/uL (1.0-4.8); Lymphocytes % (A) 14 %; MCH 34.6 pg (25.0-35.0); MCHC 34.9 g/dL (31.0-37.0); MCV 99.3 fL (80.0-100.0); Monocytes # (A) 0.3 k/uL (0-1.0); Monocytes % (A) 5 %; Neutrophils # (A) 4.6 k/uL (1.3-7.7); Neutrophils % (A) 77 %; RBC 4.11 m/uL (4.30-5.90); RDW 13.7 % (11.5-15.5); WBC (Perox) 5.95
[2016-10-03 10:55] LABS: ALT 197 U/L (21-72); AST 392 U/L (17-59); Alkaline Phosphatase 90 U/L (38-126); Anion Gap 13 mmol/L; Blood Urea Nitrogen <2 mg/dL (9-20); Calcium 7.9 mg/dL (8.4-10.2); Carbon Dioxide 20 mmol/L (22-30); Chloride 106 mmol/L (98-107); Glucose 88 mg/dL (74-99); Magnesium 1.8 mg/dL (1.6-2.3); Non-African American GFR(MDRD) >60 (>60 ml/min/1.73 sqM); Potassium 3.9 mmol/L (3.5-5.1); Sodium 139 mmol/L (137-145); Total Bilirubin 0.8 mg/dL (0.2-1.3); Total Protein 6.1 g/dL (6.3-8.2)
[2016-10-03 11:34] LABS: Appearance,Urine Clear (Clear); Bilirubin,Urine Negative (Negative); Glucose,Urine (UA) Negative (Negative); Ketones,Urine Negative (Negative); Leukocyte Esterase,Urine Negative (Negative); Nitrite,Urine Negative (Negative); Protein,Urine Negative (Negative); UA Billing (MACRO vs. MICRO) CHEM; Urobilinogen,Urine <2.0 mg/dL (<2.0)
[2016-10-03] MEDS ORDERED: PANTOPRAZOLE 40 MG TABLET PO STA (12:34)
[2016-10-03] MEDS ORDERED: NICOTINE 21MG/24HR PATCH TRANSDERM STA (14:22)
[2016-10-03] MEDS ORDERED: cloNIDine HCL 0.1 MG TAB PO STA (15:14)
[2016-10-03 17:44] VITALS: BMI 21.2
[2016-10-03] MEDS ORDERED: MAGNESIUM HYDROXIDE 2,400 MG/10 ML CUP PO PRN (18:11)
[2016-10-03] MEDS ORDERED: MAG HYDROX/AL HYDROX/SIMETH 30 ML CUP PO PRN (18:11)
[2016-10-03] MEDS ORDERED: ACETAMINOPHEN TAB 325 MG TAB PO PRN (18:11)
[2016-10-03] MEDS: cloNIDine HCL 0.1 MG TAB PO SCH ×2 (18:33→21:07)
[2016-10-03] MEDS: LORazepam 1 MG TAB PO PRN (18:35)
[2016-10-03] MEDS: ATORVASTATIN 20 MG TAB PO SCH (21:06)
[2016-10-03] MEDS: ATENOLOL 12.5 MG TAB PO SCH (21:06)
[2016-10-03] MEDS: OLANZapine 5 MG TAB PO SCH (21:06)
[2016-10-03] MEDS: GABAPENTIN 100 MG CAP PO SCH (21:07)
[2016-10-03] MEDS: LORazepam 1 MG TAB PO SCH (21:07)
[2016-10-04] MEDS: NICOTINE 21MG/24HR PATCH TRANSDERM SCH (09:13)
[2016-10-04] MEDS: PANTOPRAZOLE 40 MG TABLET PO SCH (09:13)
[2016-10-04] MEDS: GABAPENTIN 100 MG CAP PO SCH ×3 (09:13→20:11)
[2016-10-04] MEDS: LORazepam 1 MG TAB PO SCH ×3 (09:13→20:12)
[2016-10-04] MEDS: ATENOLOL 12.5 MG TAB PO SCH ×2 (09:13→20:11)
[2016-10-04] MEDS: cloNIDine HCL 0.1 MG TAB PO SCH ×3 (09:13→20:11)
[2016-10-04] MEDS: VENLAFAXINE HCL ER 75 MG CAP PO SCH (09:13)
[2016-10-04] MEDS: FOLIC ACID 1 MG TAB PO SCH (12:05)
[2016-10-04] MEDS: THIAMINE 100 MG TAB PO SCH (12:05)
[2016-10-04] MEDS: MULTIVITAMINS, THERA 1 EACH TAB PO SCH (12:05)
[2016-10-04] MEDS: LORazepam 1 MG TAB PO PRN (12:05)
--- NOTE | 2016-10-04 13:54 | HP ---
DATE OF ADMISSION: 10/03/2016 IDENTIFYING DATA: This patient is a 46-year-old but male who was admitted to the mental health unit through the emergency room for acute suicidal ideation. HISTORY OF PRESENT ILLNESS: The patient is known to the psychiatric service. He was on this mental health unit in June of this year. He was evaluated by Dr. Chew and I assumed care for the patient as well. He has a known diagnosis of major depressive disorder and alcohol use disorder with a history of psychosis. He presents reporting he has acute suicidal ideation with a plan to drink himself to . The precipitant to this crisis appears to be the break-up between him and his girlfriend Nichole. At the time, he states she was the only support person in his life and she told him due to her own medical reasons she needed to separate from him and has not been available. The patient reports his mood is depressed. He has been feeling hopeless. His appetite has been decreased, sleep has been decreased. Energy is low. He reports that he has been consuming twenty 12 ounces cans of beer per day. Subsequently, he has been experiencing visual hallucinations and has had some paranoid thinking. He reports today those are much improved. He has no history of hypomanic or manic episodes. He is endorsing no homicidal thoughts. He has no firearms at home. PAST PSYCHIATRIC HISTORY: The patient has had at least one prior inpatient psychiatric admission. No history of suicide attempts. He does work with [facility]. He sees Chantale as a therapist. He is involved with peers support. Dr. Chatman is his prescribing psychiatrist. He apparently is on Zyprexa 5 mg at bedtime, Effexor-XR 225 mg daily, Neurontin 100 mg 3 times daily. He states he has been off these medications for approximately 3 weeks. He has previously been on Risperdal and Klonopin. He states that in the past he has been on Prozac, Paxil, Zoloft, Celexa and Lexapro. PAST MEDICAL HISTORY: Hypertension, hyperlipidemia, GERD. ALLERGIES: No known drug allergies. CHEMICAL DEPENDENCY HISTORY: The patient continues to excessively use alcohol. He is consuming twenty 12 ounces cans of beer per day. He has been doing this since 2009. It seems that the amount has increased over time. He reports no use of marijuana or other illicit drugs. He did go to inpatient chemical dependency treatment once in June of this year, but only attended for several days and then left. He states he had a bad experience. FAMILY PSYCHIATRIC HISTORY: His mother was known to have depression. No suicides in the family. Family chemical dependency history: His father was known to have an alcohol use disorder. SOCIAL HISTORY: The patient is 46 years old. He has been twice. He is from his second . Apparently, she resides somewhere in [place]. The patient has had a girlfriend Nichole with a recent break-up. The patient was previously working at a [employer] for numerous years. He has been off work for approximately one year and has not made efforts to regain employment. He lives alone. He has one brother and 4 sisters and has had no contact with them, but states they are more recently coming in the picture and he expects several family members to visit this evening. He has a high school education. No history of service. Legal history: None. Abuse history: None reported. MENTAL STATUS EXAM: The patient is a thin male appearing his stated age. He is dressed in hospital attire. He has a disheveled appearance. Eye contact is appropriate. Speech is fluent, spontaneous, nonpressured. He speaks quietly. He endorses a depressed mood with suicidal ideation. He endorses no homicidal ideation. He is endorsing no auditory or visual hallucinations at this time. It appears that those were provoked by his alcohol use. He states at times he feels unsafe, but he feels safe here in the hospital. He demonstrates no verbal or physical aggressiveness. He has a mild tremor that is appreciated likely due to discontinuation of alcohol. Thought process is linear. He demonstrates no tangential thinking, loose associations or flight of ideas. He demonstrates no verbal or physical aggressiveness. He is oriented to person, place, and date. He is able to name the days of the week backwards. Strengths: Housing. He is anticipating support from family. Weaknesses: Recent break-up with girlfriend, ongoing alcohol use. Intellect: Below average to average. IMPRESSIONS: 1. Major depressive disorder, recurrent, severe. Rule out psychosis. 2. Alcohol use disorder. 3. Anxiety, not otherwise specified. 4. Hypertension. 5. Hyperlipidemia. 6. Break-up with girlfriend, feeling unsupported, unemployment. PLAN: The patient has been admitted to the mental health unit. He is here voluntarily. We reviewed his current medications and medication options. He has been off these for approximately 3 weeks. We will go ahead and restart his medications. The Effexor will be restarted at 75 mg daily. This may be titrated during the course of the stay. We are monitoring his vital signs. They are elevated. We are providing Ativan 1 mg 3 times a day as scheduled with 1 mg available every 2 hours as needed for breakthrough withdrawal symptoms. He will meet with the allergy physician for routine history and physical exam. Thiamine and Folic acid were started as well. Social work will meet with the patient. Complete psychosocial assessment and begin discharge planning. We discussed having him consider inpatient chemical dependency treatment again, but he refuses. The patient is assigned to Dr. Bro. She will assume care of the patient starting tomorrow.
[2016-10-04] MEDS: ATORVASTATIN 20 MG TAB PO SCH (20:11)
[2016-10-04] MEDS: OLANZapine 5 MG TAB PO SCH (20:11)
--- NOTE | 2016-10-05 08:02 | XR ---
EXAMINATION TYPE: XR chest 1V DATE OF EXAM: 10/05/2016 COMPARISON: NONE HISTORY: 46 year-old male left lower rib pain TECHNIQUE: Single frontal view of the chest is obtained. FINDINGS: The heart is upper limits of normal in size. Aorta and pulmonary vasculature within normal limits. No consolidation, pleural effusion, or pneumothorax. IMPRESSION: Heart upper limits of normal in size. Otherwise, no acute process seen.
[2016-10-05] MEDS: NICOTINE 21MG/24HR PATCH TRANSDERM SCH (08:41)
[2016-10-05] MEDS: ATENOLOL 12.5 MG TAB PO SCH ×2 (08:42→20:59)
[2016-10-05] MEDS: PANTOPRAZOLE 40 MG TABLET PO SCH (08:42)
[2016-10-05] MEDS: VENLAFAXINE HCL ER 75 MG CAP PO SCH (08:43)
[2016-10-05] MEDS: cloNIDine HCL 0.1 MG TAB PO SCH ×3 (08:43→21:00)
[2016-10-05] MEDS: LORazepam 1 MG TAB PO SCH ×3 (08:43→21:00)
[2016-10-05] MEDS: GABAPENTIN 100 MG CAP PO SCH ×3 (08:43→21:00)
--- NOTE | 2016-10-05 10:16 | CONS ---
DATE OF CONSULTATION: REASON FOR CONSULTATION: Medical management of hypertension and alcohol abuse. HISTORY OF PRESENT ILLNESS: Mr. Mason is a 46-year-old male with a known history of hypertension, hyperlipidemia, depression and alcohol abuse as well as nicotine addiction came to the hospital for psychiatric elevation. Patient states he is severely depressed and suicidal. Patient had a longstanding history of depression and multiple ( ) psychiatric admissions. Patient has been drinking heavily in the past week, 20 cans per day. Patient does have intermittent nausea ( ). No complaints of chest pain or short of breath. Patient denied any of shakiness ( ). Otherwise, patient denied any ( ) radiation. Denied any drugs or IVDU. Patient does complain of pain in the left rib cage and no fever, no chills. No cough or sputum production. No recent illnesses or sick contacts at home. REVIEW OF SYSTEMS: CONSTITUTIONAL: No fever. No chills. No weakness. RESPIRATORY: No cough or sputum production. CARDIOVASCULAR: No chest pain or shortness of breath. ABDOMEN: No nausea, vomiting, abdominal pain. GENITOURINARY: No dysuria. ENDOCRINE: Negative. NEUROLOGIC: Negative. PSYCHIATRY: ( ) All other 14-point review of systems negative except as above. PAST MEDICAL HISTORY: GERD, hypertension, anxiety and depression. PAST SURGICAL HISTORY: Hernia repair. SOCIAL HISTORY: Patient is currently an everyday smoker. Smokes about 1-1/2 to 2 packs per day. Drinks about 20 can per day. Denied any drugs or IVDU. FAMILY HISTORY: Father had COPD. Mother had hypertension. Brother has a blood disorder. Sister has no reported history. No known drug allergies. Home medications include: 1. Multivitamin. 2. Catapres. 3. Atenolol. 4. Atorvastatin. 5. Gabapentin. 6. Olanzapine. 7. Omeprazole. 8. Effexor. PHYSICAL EXAMINATION: A 46-year-old male marc in the bed. Awake, alert, oriented x3. No apparent distress. VITALS: Blood pressure is 157/90, pulse is 77, respirations 18, temperature afebrile, pulse ox 98% on room air. HEENT: Atraumatic, normocephalic. Neck is supple. No JVD. CVS EXAM: S1, S2 heard. No murmurs, no gallop, no rub. LUNGS: Bilateral air entry is present. No wheezing. No crackles. Nonlabored breathing. Patient does have tenderness of the left lower rib cage. ABDOMEN: Soft, nontender. Bowel sounds are present. PILL MAKER: Awake, alert, oriented x3. No focal deficit. EXTREMITIES: No edema. Pulses are palpable bilaterally. No clubbing or cyanosis. PSYCHIATRIC: Cooperative. LABORATORY DATA: WBC 6.0, hemoglobin 14.2, platelets 156. Sodium 139, potassium 3.9, chloride 106, bicarb is 20. BUN less than 2, creatinine 0.58. AST is 392, ALT is 197. Total protein 6.1. UA negative for infection. UDS showed benzodiazepines. IMPRESSION: 1. Major depression, currently on medication as per Psychiatry. 2. Severe alcohol abuse. Will monitor for alcohol withdrawal symptoms. 3. Nicotine addiction. 4. Anxiety. 5. Elevated liver enzymes with possible alcoholic hepatitis. 6. Hypertension. 7. Hyperlipidemia. 8. Stressful situation in life. DISCUSSION AND PLAN: Patient will be continued on ( ) as per psychiatry recommendations. Will monitor for alcohol withdrawal symptoms and Ativan 1 mg IV q.6 hourly p.r.n. for alcohol withdrawal symptoms and shakiness. Patient was counseled extensively for smoking cessation and alcohol abuse. We will continue the current management and further recommendations based on clinical course.
[2016-10-05] MEDS: THIAMINE 100 MG TAB PO SCH (11:57)
[2016-10-05] MEDS: FOLIC ACID 1 MG TAB PO SCH (11:57)
[2016-10-05] MEDS: MULTIVITAMINS, THERA 1 EACH TAB PO SCH (11:57)
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
[2016-10-05] MEDS: OLANZapine 5 MG TAB PO SCH (20:59)
[2016-10-05] MEDS: ATORVASTATIN 20 MG TAB PO SCH (20:59)
[2016-10-06] MEDS: PANTOPRAZOLE 40 MG TABLET PO SCH (08:11)
[2016-10-06] MEDS: NICOTINE 21MG/24HR PATCH TRANSDERM SCH (08:11)
[2016-10-06] MEDS: VENLAFAXINE HCL ER 75 MG CAP PO SCH (08:11)
[2016-10-06] MEDS: GABAPENTIN 100 MG CAP PO SCH ×3 (08:11→20:09)
[2016-10-06] MEDS: LORazepam 1 MG TAB PO SCH (08:12)
[2016-10-06] MEDS: ATENOLOL 12.5 MG TAB PO SCH ×2 (08:12→20:09)
[2016-10-06] MEDS: cloNIDine HCL 0.1 MG TAB PO SCH ×3 (08:12→20:09)
[2016-10-06 08:45] LABS: ALT 242 U/L (21-72); AST 266 U/L (17-59); Alkaline Phosphatase 96 U/L (38-126); Anion Gap 10 mmol/L; Blood Urea Nitrogen 8 mg/dL (9-20); Calcium 9.2 mg/dL (8.4-10.2); Carbon Dioxide 28 mmol/L (22-30); Chloride 105 mmol/L (98-107); Glucose 87 mg/dL (74-99); Non-African American GFR(MDRD) >60 (>60 ml/min/1.73 sqM); Potassium 3.9 mmol/L (3.5-5.1); Sodium 143 mmol/L (137-145); Total Bilirubin 0.9 mg/dL (0.2-1.3); Total Protein 6.4 g/dL (6.3-8.2)
[2016-10-06 08:49] LABS: Basophils % (A) 1 %; CH 32.6; CHCM 31.8; Eosinophils # (A) 0.2 k/uL (0-0.7); Eosinophils % (A) 3 %; HCT 43.6 % (39.0-53.0); HDW 2.03; HGB 14.9 gm/dL (13.0-17.5); Luc # (Auto) 0.22; Luc % (Auto) 3; Lymphocytes # (A) 1.5 k/uL (1.0-4.8); Lymphocytes % (A) 22 %; MCHC 34.1 g/dL (31.0-37.0); MCV 102.7 fL (80.0-100.0); Macrocytosis Slight; Mean Platelet Volume 7.5; Monocytes # (A) 0.4 k/uL (0-1.0); Monocytes % (A) 6 %; Neutrophils # (A) 4.2 k/uL (1.3-7.7); Neutrophils % (A) 64 %; RBC 4.24 m/uL (4.30-5.90); RDW 13.5 % (11.5-15.5); WBC 6.6 k/uL (3.8-10.6); WBC (Perox) 7.05
[2016-10-06] MEDS: FOLIC ACID 1 MG TAB PO SCH (12:03)
[2016-10-06] MEDS: THIAMINE 100 MG TAB PO SCH (12:03)
[2016-10-06] MEDS: MULTIVITAMINS, THERA 1 EACH TAB PO SCH (12:03)
--- NOTE | 2016-10-06 12:26 | P.PN ---
Progress Note - Text INTERVERAL HISTORY: Patient discussed at team treatment meeting, review of chart , and met with patient. Family meeting is scheduled for tomorrow. Patient seated outside my door this morning . Patient states that he knows that the family was supposed to go before the hat steamer today regarding the temporary guardianship, he has not heard anything reports that he is worried. Patient states that he is just trying to adjust to being here and then to add that on his plate is difficult. Patient reports that he slept well last night, does not feel any withdrawal. Patient is still wanting to leave as soon as possible we discussed the family meeting, the temporary guardianship and how all of that will impact him. Patient is depressed, sad, but denies suicidal ideation MENTAL STATUS EXAM: Alert and oriented 3 soft-spoken male, fair groomed in street clothing. Speech was low volume, normal rate and production. Coherent logical and circumstantial thought process. No KAYKAY no FOI no delusions no paranoid ideation. Denies auditory or visual hallucinations. Mood dysphoric, affect constricted Denies suicide ideation, denies homicidal ideation PLAN: Continue inpatient psychiatric admission, treat depression, but also alcoholism. Continue venlafaxine 75 mg for another day then increase to 150. Continue Zyprexa at bedtime Continue gabapentin Reduce Ativan 0.5mg tid PRN prevention of alcohol withdrawal/DTs. Increase venlafaxine 150mg Milieu therapy as tolerated
[2016-10-06] MEDS: LORazepam 0.5 MG TAB PO PRN (16:06)
[2016-10-06] MEDS: ATORVASTATIN 20 MG TAB PO SCH (20:09)
[2016-10-06] MEDS: OLANZapine 5 MG TAB PO SCH (20:09)
[2016-10-07] MEDS: cloNIDine HCL 0.1 MG TAB PO SCH ×3 (08:29→20:26)
[2016-10-07] MEDS: LORazepam 0.5 MG TAB PO PRN (08:29)
[2016-10-07] MEDS: ATENOLOL 12.5 MG TAB PO SCH ×2 (08:29→20:26)
[2016-10-07] MEDS: NICOTINE 21MG/24HR PATCH TRANSDERM SCH (08:29)
[2016-10-07] MEDS: GABAPENTIN 100 MG CAP PO SCH ×3 (08:29→20:26)
[2016-10-07] MEDS: PANTOPRAZOLE 40 MG TABLET PO SCH (08:29)
[2016-10-07] MEDS ORDERED: VENLAFAXINE HCL ER 150 MG CAP PO SCH (09:00)
[2016-10-07] MEDS: THIAMINE 100 MG TAB PO SCH (11:48)
[2016-10-07] MEDS: MULTIVITAMINS, THERA 1 EACH TAB PO SCH (11:48)
[2016-10-07] MEDS: FOLIC ACID 1 MG TAB PO SCH (11:48)
--- NOTE | 2016-10-07 12:50 | P.PN ---
Progress Note - Text INTERVERAL HISTORY: Patient discussed at team treatment meeting, review of chart , and met with patient. Staff reported that patient had a significant emotional breakdown yesterday. He will approached the social media assistant on her way out of the unit asking about the guardianship when she explained it to him he became hysterical pacing crying unable to calm himself. He was escorted to the medication window and received a dose of Ativan. Staff also reported that he was unable to calm down for the rest of the day and he was unable to participate in groups. Patient is scheduled for a family meeting today. Patient came to my door knocking not realizing that I was with the patient. Later in the day he apologize and we went to my office. "It's going to be for against 1, I can't do this, they're going to force me to do something" Patient all reports that he met with a closing specialist and that that closing specialist told them that [place] is a larger rehab but there might be a smaller one that he might feel more comfortable with. Patient was encouraged and congratulated in changing his mind about considering inpatient rehab. Patient is attempting to get screen writer to commit to a discharge date. Explained to patient that I can't do that but that I would take everything into consideration. Scratch that patient agreed to continue titration of Effexor. Patient reports that he did not sleep well last night slept well last night. Patient is depressed, sad, but denies suicidal ideation MENTAL STATUS EXAM: Alert and oriented 3 soft-spoken male, fair groomed in street clothing. Speech was low volume, normal rate and production. Coherent logical and circumstantial thought process. No KAYKAY no FOI no delusions no paranoid ideation. Denies auditory or visual hallucinations. Mood dysphoric, affect constricted Denies suicide ideation, denies homicidal ideation PLAN: Continue inpatient psychiatric admission, treat depression, but also alcoholism. Increase Effexor XR 225mg Continue Zyprexa at bedtime Continue gabapentin Continue CIWA, pulse is elevated, Ativan 0.5mg tid PRN prevention of alcohol withdrawal/DTs. Milieu therapy as tolerated
[2016-10-07] MEDS: ATORVASTATIN 20 MG TAB PO SCH (20:26)
[2016-10-07] MEDS: OLANZapine 5 MG TAB PO SCH (20:26)
[2016-10-08 06:43] VITALS: TEMP 98.1
[2016-10-08] MEDS: PANTOPRAZOLE 40 MG TABLET PO SCH (07:57)
--- NOTE | 2016-10-08 08:48 | P.DS ---
Providers Date of admission: 10/03/16 16:13 Expected date of discharge: 10/08/16 Attending physician: Sri Bro MD Consults: 10/03/16 18:11 Consult Physician Routine Consulting Provider: Arnaud Nichols Consult Reason/Comments: h and p, eval and tx r/o metabolic disorder Do you want consulting provider notified?: Yes Primary care physician: Mary Schneider Hospital Course: ADMISSION HISTORY: Patient was admitted with acute suicidal ideation. Patient is known to this unit, has diagnoses of major depressive disorder, alcohol use disorder, and psychosis. Patient became acutely suicidal after his girlfriend broke up, he stopped taking his medications, he was tech staying and emailing her eventually she had to request an order of protection. Family became involved and got him to come to the unit because of his statements of wanting to . HOSPITAL COURSE: Patient was reluctant to stay on the unit, felt that he was ready to go, minimized his alcohol use, and stated he was ready to get out to go work. Family was in the process of obtaining temporary guardianship, due to his year- long of not working and just drinking all day. Patient reported that he drank 20 beers per day, it's estimated that he drank more than that. We restarted his medications Effexor and slowly titrated it back up to its original dose of 225 mg he tolerated this. We also started Zyprexa 5 mg at bedtime, this psychosis that was seen was paranoia for the most part. He did not appear to have any problems with stopping alcohol we titrated down the Ativan. Family proceeded with the temporary guardianship. Patient continued to request discharge with no intention of going to rehab. By the last day prior to discharge he had changed his mind and was verbalizing agreement to go into rehab. He had a positive family meeting. He came to my door this morning requesting discharge as early as possible, he will be discharged today and he will go stay with his parents until he is in the rehab. ADMISSION DIAGNOSES: Suicide ideation Alcohol use disorder, severe Major depressive disorder recurrent, moderate to severe Psychosis, unspecified DISCHARGE DIAGNOSES: Suicide ideation, resolved Alcohol use disorder, severe Major depressive disorder recurrent, moderate to severe Psychosis, unspecified MENTAL STATUS EXAM: Alert and oriented 3 soft-spoken male, fair groomed in street clothing's. Speech was low volume, normal rate and production. Coherent logical and circumstantial thought process. No KAYKAY no FOI no delusions no paranoid ideation. Denies auditory or visual hallucinations. Mood dysphoric, affect full range decreased intensity Denies suicide ideation, denies homicidal ideation PLAN: Discharged today. Effexor XR 225 mg every morning Zyprexa 5 mg daily at bedtime Gabapentin 100 mg 3 times a day Pertinent Studies: none Procedures: none Patient Condition at Discharge: Stable Plan - Discharge Summary New Discharge Prescriptions: Continue Multivitamins, Thera [Multivitamin (formulary)] 1 tab PO DAILY Atenolol [Tenormin] 12.5 mg PO BID #30 Atorvastatin [Lipitor] 20 mg PO HS #30 cloNIDine HCL [Catapres] 0.1 mg PO TID #45 tab Gabapentin [Neurontin] 100 mg PO TID #90 OLANZapine [ZyPREXA] 5 mg PO HS #30 Omeprazole [PriLOSEC] 20 mg PO AC-BRKFST #30 Venlafaxine HCl [Effexor XR] 225 mg PO DAILY #90 Discharge Medication List Multivitamins, Thera [Multivitamin (formulary)] 1 tab PO DAILY 07/04/16 [History ] Atenolol [Tenormin] 12.5 mg PO BID #30 10/08/16 [Rx] Atorvastatin [Lipitor] 20 mg PO HS #30 10/08/16 [Rx] Gabapentin [Neurontin] 100 mg PO TID #90 10/08/16 [Rx] OLANZapine [ZyPREXA] 5 mg PO HS #30 10/08/16 [Rx] Omeprazole [PriLOSEC] 20 mg PO AC-BRKFST #30 10/08/16 [Rx] Venlafaxine HCl [Effexor XR] 225 mg PO DAILY #90 10/08/16 [Rx] cloNIDine HCL [Catapres] 0.1 mg PO TID #45 tab 10/08/16 [Rx] Follow up Appointment(s)/Referral(s): [facility] [Outside] - 10/09/16 11:00 am (10/09/16 at 11:00 am with Jeimy Dobbins) None,Stated [REFERRING] - 1-2 days Discharge Disposition: HOME SELF-CARE
[2016-10-08] MEDS ORDERED: VENLAFAXINE HCL ER 75 MG CAP PO SCH (09:00)
[2016-10-08] MEDS: ATENOLOL 12.5 MG TAB PO SCH (09:13)
[2016-10-08] MEDS: NICOTINE 21MG/24HR PATCH TRANSDERM SCH (09:13)
[2016-10-08] MEDS: cloNIDine HCL 0.1 MG TAB PO SCH (09:14)
[2016-10-08] MEDS: GABAPENTIN 100 MG CAP PO SCH (09:14)
[2016-10-08] MEDS: LORazepam 0.5 MG TAB PO PRN (09:16)
[2016-10-08 09:31] VITALS: BP 176/90; PULSE 105; RESP 18
[2016-10-08] MEDS: FOLIC ACID 1 MG TAB PO SCH (12:24)
[2016-10-08] MEDS: MULTIVITAMINS, THERA 1 EACH TAB PO SCH (12:24)
[2016-10-08] MEDS: THIAMINE 100 MG TAB PO SCH (12:24)
== END 2016-10-08 12:45 | disposition home or self-care (01) | DRG 885 ==
LOC: EC 09:22 → 3MHU 16:13
PROVIDERS: ADMIT Psychiatry & Neurology Addiction Medicine; ATTEND Psychiatry & Neurology Addiction Medicine
DX: F33.2 Major depressive disorder, recurrent severe without psychotic features (principal); R45.851 Suicidal ideations; I10 Essential (primary) hypertension; E78.5 Hyperlipidemia, unspecified; F10.20 Alcohol dependence, uncomplicated; F17.200 Nicotine dependence, unspecified, uncomplicated; F41.9 Anxiety disorder, unspecified; K21.9 Gastro-esophageal reflux disease without esophagitis; Z79.899 Other long term (current) drug therapy; Z81.8 Family history of other mental and behavioral disorders; Z82.49 Family history of ischemic heart disease and other diseases of the circulatory system; Z82.5 Family history of asthma and other chronic lower respiratory diseases
CPT/HCPCS: 36415; 71010; 80053; 80306; 81003; 82075; 83690; 83735; 85025

== ENCOUNTER → 2017-09-13 | Outpatient (CLI) | payer OTHER ==
--- NOTE | 2017-09-13 15:25 | XR ---
EXAMINATION TYPE: XR abdomen 1V DATE OF EXAM: 09/13/2017 COMPARISON: NONE HISTORY: Pain TECHNIQUE: Single supine KUB image of the abdomen is obtained FINDINGS: Small bowel demonstrates no evidence for dilatation or air fluid levels. Gas and fecal material is seen in non-distended colon. No convincing evidence for pneumoperitoneum. No unusual calcifications. The lung bases are clear. The osseous structures are intact. IMPRESSION: 1. Overall nonobstructive bowel gas pattern.
== END | disposition home or self-care (01) ==
LOC: RADXRMAIN 15:08
PROVIDERS: ATTEND Nurse Practitioner
DX: R10.12 Left upper quadrant pain (principal)
CPT/HCPCS: 74018

== ENCOUNTER → 2018-08-27 | Outpatient (CLI) | payer MEDICARE ==
[2018-08-27 11:47] LABS: Basophils # (A) 0.1 k/uL (0-0.2); Basophils % (A) 1 %; Eosinophils # (A) 0.2 k/uL (0-0.7); Eosinophils % (A) 2 %; HCT 47.3 % (39.0-53.0); HGB 14.8 gm/dL (13.0-17.5); Lymphocytes # (A) 1.7 k/uL (1.0-4.8); Lymphocytes % (A) 20 %; MCH 28.2 pg (25.0-35.0); MCHC 31.4 g/dL (31.0-37.0); MCV 89.7 fL (80.0-100.0); Mean Platelet Volume 6.8; Monocytes # (A) 0.5 k/uL (0-1.0); Monocytes % (A) 5 %; Neutrophils # (A) 5.9 k/uL (1.3-7.7); Neutrophils % (A) 70 %; Platelet Count 335 k/uL (150-450); RBC 5.27 m/uL (4.30-5.90); RDW 13.6 % (11.5-15.5); WBC 8.4 k/uL (3.8-10.6)
[2018-08-27 17:38] LABS: African American GFR (CKD) 121.6 (60.0-200.0); Albumin 4.6 g/dL (3.80-4.90); Albumin/Globulin Ratio 2.19 (1.60-3.17); BUN/Creat Ratio 13.75 Ratio (12.00-20.00); Calcium 9.2 mg/dL (8.7-10.3); Globulin 2.1 g/dL (1.6-3.3); Magnesium 1.9 mg/dL (1.5-2.4); Potassium 4.8 mmol/L (3.5-5.5); Total Bilirubin 0.2 mg/dL (0.3-1.2); Total Protein 6.7 g/dL (6.2-8.2)
[2018-08-27 17:47] LABS: Vitamin D 25 Hydroxy 26.4 ng/mL (30.0-100.0)
[2018-08-27 17:48] LABS: T4, Free (Free Thyroxine) 1.1 ng/dL (0.80-1.80)
[2018-08-27 20:27] LABS: Hemoglobin A1C 5.7 % (4.0-6.0)
== END | disposition home or self-care (01) ==
LOC: LABWHC1 10:33
PROVIDERS: ATTEND Nurse Practitioner
DX: Z79.899 Other long term (current) drug therapy (principal); E78.2 Mixed hyperlipidemia; I10 Essential (primary) hypertension
CPT/HCPCS: 36415; 80053; 80061; 82306; 82607; 83036; 83735; 84439; 84443; 85025

== ENCOUNTER → 2023-09-30 | Outpatient (CLI) | payer MEDICARE ==
--- NOTE | 2023-10-02 21:49 | CTL ---
EXAMINATION TYPE: CT Low Dose Lung DATE OF EXAM ORDERED: 09/30/2023 HISTORY: Current smoker. Lung cancer screening CT DLP: 141.[address] CTDI: 3.5 mGy Automated exposure control for dose reduction was used. SCREENING VISIT: Initial COMPARISON: None TECHNIQUE: Low dose computed tomography scan was performed through the chest at 1 mm thick sections a nd reconstructed images in the coronal plane at [address] DIAGNOSTIC QUALITY: Satisfactory FINDINGS: LUNG NODULES: Present, detailed below: #1 there is a 0.5 cm peripheral nodule right midlung. Series 4 image 137. LUNGS: COPD: Severity: Mild Fibrosis: Severity: None Lymph nodes: Some shotty lymphadenopathy is present. Other findings: None RIGHT PLEURAL SPACE: Effusion: None Calcification: None Thickening: None Pneumothorax: None LEFT PLEURAL SPACE: Effusion: None Calcification: None Thickening: None Pneumothorax: None HEART: Other: Ascending thoracic aorta at the level the main pulmonary artery measures 3.2 cm. The main pul monary artery at the bifurcation measures 2.5 cm. Heart Size: Normal Coronary calcification: Mild Pericardial effusion: None OTHER FINDINGS: Upper abdomen: Normal Bony thorax: Normal Supraclavicular region: Normal IMPRESSION: Probably benign findings FOLLOW UP CT CHEST RECOMMENDATION: Follow-up CT chest in [address] LUNG RAD: Lung-Rad 3 Probably Benign
== END | disposition home or self-care (01) ==
LOC: RADCTMAIN 09:29
PROVIDERS: ATTEND Family Medicine
DX: Z12.2 Encounter for screening for malignant neoplasm of respiratory organs (principal); F17.210 Nicotine dependence, cigarettes, uncomplicated
CPT/HCPCS: 71271

== ENCOUNTER → 2024-05-01 | Outpatient (CLI) | payer MEDICARE ==
--- NOTE | 2024-05-01 12:01 | CTL ---
EXAMINATION TYPE: CT Low Dose Lung DATE OF EXAM ORDERED: 05/01/2024 COMPARISON: Prior study September 30, 2023 CLINICAL INDICATION: Male, 53 years old with history of R91.1 PULM NODULE; H, personal hx of nicoti ne dependence 1/5ppd X 35 years current smoker, lung nodule, Lung cancer screening, History of Smokin g/tobacco use. TECHNIQUE: Low dose computed tomography scan was performed through the chest at 1 mm thick sections a nd reconstructed images in multiple planes at 1 mm and [address] DLP: [address] CTDI: 2.14 mGy Automated exposure control for dose reduction was used. CT DIAGNOSTIC QUALITY: Satisfactory FINDINGS: Nodules: RUL: Stable 5 x 3 mm peripheral right upper lobe nodule axial image 127. RML: None. RLL: None. DB: None. LLL: None. LUNGS: COPD: Severity: Mild Fibrosis: Severity: None Lymph nodes: None Other findings: None RIGHT PLEURAL SPACE: Effusion: None Calcification: None Thickening: None Pneumothorax: None LEFT PLEURAL SPACE: Effusion: None Calcification: None Thickening: None Pneumothorax: None HEART: Heart Size: Normal Coronary Calcification: Small Pericardial Effusion: None OTHER FINDINGS: Upper abdomen: None Bony thorax: Scoliotic curvature in the upper to mid thoracic spine is redemonstrated Supraclavicular region: None Other: None IMPRESSION: Stable 5 x 3 mm right upper lobe nodule. No new or enlarging greater than [address] LUNG RAD AND CT CHEST RECOMMENDATION: Lung-Rad 2 Benign Appearance or Behavior: Continue annual sc reening with LDCT in 12 months. S Modifier (other clinically significant findings): None [facility], , 05/01/2024 11:59 AM
== END | disposition home or self-care (01) ==
LOC: RADCTMAIN 10:34
PROVIDERS: ATTEND Family Medicine
DX: Z12.2 Encounter for screening for malignant neoplasm of respiratory organs (principal); R91.1 Solitary pulmonary nodule; F17.210 Nicotine dependence, cigarettes, uncomplicated
CPT/HCPCS: 71271